=== PATIENT | female | born 1955 | race Two or more races ===

== ENCOUNTER 2022-09-02 07:48 | Outpatient (CLI) | payer OTHER | END 2022-09-02 07:50 | disposition home or self-care (01) | LOC: NUCLEAR 07:48 | PROVIDERS: ATTEND Internal Medicine Cardiovascular Disease | DX: I11.9 Hypertensive heart disease without heart failure (principal); E78.00 Pure hypercholesterolemia, unspecified; I20.8 Other forms of angina pectoris | CPT/HCPCS: 78452; 93017; A9500; J0153 ==

== ENCOUNTER 2022-09-10 09:27 | Outpatient (CLI) | payer OTHER | END 2022-09-10 09:34 | disposition home or self-care (01) | LOC: SONOGRAMA 09:27 | PROVIDERS: ATTEND Internal Medicine Gastroenterology | DX: R13.12 Dysphagia, oropharyngeal phase (principal); E03.8 Other specified hypothyroidism ==

== ENCOUNTER 2022-09-23 09:10 | Outpatient (CLI) | payer OTHER | END 2022-09-23 09:15 | disposition home or self-care (01) | LOC: RX STUDY 09:10 | PROVIDERS: ATTEND Internal Medicine Gastroenterology | DX: R13.12 Dysphagia, oropharyngeal phase (principal) ==